=== PATIENT | female | born 1955 | race Caucasian/White ===

== ENCOUNTER 2017-08-25 16:39 | Emergency (ER) | payer OTHER ==
[2017-08-25 17:13] LABS: #Basophils 0.1 thou/uL (0.0-0.2); #Eosinphils 0.1 thou/uL (0.0-0.7); #Lymphocytes 2.6 thou/uL (1.20-3.40); #Monocytes 1.3 thou/uL (0.11-0.59); #Neutrophils 9.1 thou/uL (1.40-6.50); %Eosinophils 0.5 % (0.0-10.0); %Lymphocytes 19.4 % (21.0-51.0); %Neutrophils 69.2 % (42.0-75.0); Hemoglobin 11.6 g/dL (12.0-16.0); Mean Corpuscular HGB CONC 34.1 g/dL (32.0-36.0); Mean Corpuscular Hemoglobin 31.1 pg (27.0-31.0); Mean Corpuscular Volume 91.3 fl (81.0-99.0); Mean Platelet Volume 5.9 fL (7.4-10.4); Platelet Count 396 thou/uL (130-400); RBC Distribution Width 10.8 % (11.5-14.5); Red Blood Cell (RBC) Count 3.72 mill/uL (4.20-5.40); White Blood Cell (WBC) Count 13.1 thou/uL (4.8-10.8)
[2017-08-25 17:22] LABS: INR-International Normal Ratio 1.1; PTT 29.9 SEC (22.9-36.1); Prothrombin Time 13.9 SEC (12.0-14.7)
[2017-08-25 17:31] LABS: ALT (SGPT) 13 U/L (8-55); AST (SGOT) 15 U/L (5-34); Albumin 3.2 g/dL (3.5-5.0); Alkaline Phosphatase 152 U/L (40-150); Anion Gap 15 mmol/L (10-20); BUN (Urea Nitrogen) 15 mg/dL (9.8-20.1); Bilirubin, Total 0.6 mg/dL (0.2-1.2); Calc. Creatinine Clearance 0 mL/min (70-130); Calcium 9.3 mg/dL (7.8-10.44); Carbon Dioxide 24 mmol/L (22-29); Chloride 97 mmol/L (98-107); Estimated GFR-MDRD 80; Globulin 5.4 g/dL (2.4-3.5); Glucose 101 mg/dL (70-105); Protein, Total 8.6 g/dL (6.0-8.3); Sodium 132 mmol/L (136-145)
--- NOTE | 2017-08-25 19:45 | RAD ---
PORTABLE CHEST 08/25/17 An AP portable film at 1711 is presented with no prior films available for comparison. 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 There is complete opacification of the right upper lobe. It goes down to and seems to border the hermila r fissure. The trachea is not significantly shifted, however. The findings suggest a combination of m ass and atelectasis in this area. There is some congestion of the remaining vessels in the right lowe r and middle lobes as would be expected. There might be a small right pleural effusion but not a larg e one. In addition, there is a 4.1 cm mass of the left upper lobe that is presumably metastatic disea se. There are no large effusions on this side. The heart size is normal. incidentally noted was some mild gaseous distention of bowel, but it does not seem definitely organized at this time like one mala ht see in an obstruction. IMPRESSION: 1. Complete opacification of the right upper lobe that is most likely a combination of mass and atelectasis. 2. Left upper lobe mass as noted. Presumably metastatic disease. 3. Other findings as listed above. POS: HOME
== END 2017-08-25 19:54 | disposition home or self-care (01) ==
LOC: BURERS 16:39
DX: K56.41 Fecal impaction (principal); K64.4 Residual hemorrhoidal skin tags; I10 Essential (primary) hypertension; F17.210 Nicotine dependence, cigarettes, uncomplicated; Z86.73 Personal history of transient ischemic attack (TIA), and cerebral infarction without residual deficits
CPT/HCPCS: 71045; 80053; 85025; 85610; 85730; 96360; J7620